=== PATIENT | male | born 1975 | race Caucasian/White ===

== ENCOUNTER 2017-09-04 10:35 | Emergency (ER) | payer BC, OTHER ==
[2017-09-04 12:06] VITALS: BP 117/83
--- NOTE | 2017-09-04 12:34 | UC ---
[facility] HPI - HPI Summary HPI Summary: right lower 3nd molar has a cavity now as swelling in right lower side of mouth - History of Current Complaint Chief Complaint: UCDentalProblem Stated Complaint: DENTAL COMPLAINT Time Seen by Provider: 09/04/17 12:23 Hx Obtained From: Patient Onset/Duration: Gradual Onset, Worse Since - past day Severity: Moderate Alleviating Factor(s): Nothing Related History: Swelling - Allergies/Home Medications Allergies/Adverse Reactions: Allergies Allergy/AdvReac Type Severity Reaction Status Date / Time No Known Allergies Allergy Verified 09/04/17 12:06 PMH/Surg Hx/FS Hx/Imm Hx Previously Healthy: Yes - Surgical History Surgical History: None - Family History Known Family History: Positive: None - Social History Occupation: Employed Full-time Lives: With Family Alcohol Use: Rare Substance Use Type: None Smoking Status (MU): Current Every Day Smoker - Immunization History Most Recent Influenza Vaccination: NOT CURRENT Review of Systems Constitutional: Negative Skin: Negative Eyes: Negative ENT: Dental Pain - right lower dental pain Respiratory: Negative Cardiovascular: Negative Gastrointestinal: Negative Genitourinary: Negative Motor: Negative Neurovascular: Negative Musculoskeletal: Negative Neurological: Negative Psychological: Negative Is Patient Immunocompromised?: No All Other Systems Reviewed And Are Negative: Yes Physical Exam Triage Information Reviewed: Yes Appearance: Well-Appearing, No Pain Distress, Well-Nourished Vital Signs: Initial Vital Signs Temp 98.1 F 09/04/17 11:56 Pulse 76 09/04/17 11:56 Resp 18 09/04/17 11:56 BP 117/83 09/04/17 11:56 Pulse Ox 100 09/04/17 11:56 Vital Signs Reviewed: Yes Eye Exam: Normal Eyes: Positive: Conjunctiva Clear ENT Exam: Normal ENT: Positive: Normal ENT inspection, Hearing grossly normal, Pharyngeal erythema, Nasal congestion, TMs normal, Dental tenderness, Uvula midline. Negative: Muffled voice, Hoarse voice, Sinus tenderness Dental Exam: Other Dental: Positive: Percussion Tenderness @, Abscess @ Neck exam: Normal Neck: Positive: Supple, Nontender, No Lymphadenopathy Respiratory Exam: Normal Respiratory: Positive: Chest non-tender, Lungs clear, Normal breath sounds, No respiratory distress, No accessory muscle use Cardiovascular Exam: Normal Cardiovascular: Positive: RRR, No Murmur, Pulses Normal, Brisk Capillary Refill Bowel Sounds: Positive: Present Musculoskeletal Exam: Normal Musculoskeletal: Positive: Strength Intact, ROM Intact, No Edema Neurological Exam: Normal Neurological: Positive: Alert, Muscle Tone Normal Psychological Exam: Normal Skin Exam: Normal Dental Complaint Course/Dx - Course Course Of Treatment: amoxicillin pain med follow with dentist on Wednesday as planned - Differential Dx/Diagnosis Provider Diagnoses: Dental abscess roght lower 3rd molar Discharge - Discharge Plan Condition: Stable Disposition: HOME Prescriptions: Amoxicillin PO (*) [Amoxicillin 875 MG (*)] 875 mg PO BID #20 tab Hydrocodone-Acetaminophen [Hydrocodone/Acetaminophen 5-325 mg] 1 tab PO Q6H PRN #16 tab MDD 4 PRN Reason: Pain Ibuprofen TAB* [Motrin TAB* 600 MG] 600 mg PO Q6H PRN #24 tab PRN Reason: pain Patient Education Materials: Dental Abscess (ED), Toothache (ED) Referrals: [facility] [Outside] - If Needed No Primary Care Phys,NOPCP [Primary Care Provider] - Additional Instructions: Follow with Dentist on Wednesday--
== END 2017-09-04 12:52 | disposition home or self-care (01) ==
LOC: UCCORT 10:35
DX: K04.7 Periapical abscess without sinus (principal); F17.210 Nicotine dependence, cigarettes, uncomplicated
CPT/HCPCS: 99202; G0463